=== PATIENT | female | born 1965 | race Caucasian/White ===

== ENCOUNTER 2022-12-05 09:09 | Outpatient (CLI) | payer BC | END 2022-12-05 09:10 | disposition home or self-care (01) | LOC: BICMAMMO 09:09 | PROVIDERS: ATTEND Nurse Practitioner Family | DX: N63.14 Unspecified lump in the right breast, lower inner quadrant (principal); M79.89 Other specified soft tissue disorders | CPT/HCPCS: G0279 ==

== ENCOUNTER 2023-02-07 09:30 | Outpatient (CLI) | payer BC | END 2023-02-07 09:31 | disposition home or self-care (01) | LOC: PET 09:30 | PROVIDERS: ATTEND Internal Medicine | DX: C50.412 Malignant neoplasm of upper-outer quadrant of left female breast (principal); M62.89 Other specified disorders of muscle | CPT/HCPCS: 78815; A9552 ==

== ENCOUNTER 2023-05-10 09:30 | Outpatient (CLI) | payer BC | END 2023-05-10 09:31 | LOC: PET 09:30 | PROVIDERS: ATTEND Internal Medicine | DX: C50.412 Malignant neoplasm of upper-outer quadrant of left female breast (principal); R59.0 Localized enlarged lymph nodes; R91.8 Other nonspecific abnormal finding of lung field | CPT/HCPCS: 78815; A9552 ==

== ENCOUNTER 2023-08-02 11:45 | Outpatient (CLI) | payer BC | END 2023-08-02 11:46 | disposition home or self-care (01) | LOC: PET 11:45 | PROVIDERS: ATTEND Internal Medicine | DX: C50.412 Malignant neoplasm of upper-outer quadrant of left female breast (principal); R22.2 Localized swelling, mass and lump, trunk | CPT/HCPCS: 78815; A9552 ==

== ENCOUNTER 2024-02-14 10:15 | Outpatient (CLI) | payer BC | END 2024-02-14 10:16 | disposition home or self-care (01) | LOC: PET 10:15 | PROVIDERS: ATTEND Internal Medicine | DX: C50.412 Malignant neoplasm of upper-outer quadrant of left female breast (principal); C79.89 Secondary malignant neoplasm of other specified sites; R91.8 Other nonspecific abnormal finding of lung field | CPT/HCPCS: 78815; A9552 ==

== ENCOUNTER 2025-01-24 10:15 | Outpatient (CLI) | payer BC | END 2025-01-24 10:16 | disposition home or self-care (01) | LOC: PET 10:15 | PROVIDERS: ATTEND Internal Medicine | DX: C50.412 Malignant neoplasm of upper-outer quadrant of left female breast (principal) | CPT/HCPCS: 78815; A9552 ==